=== PATIENT | male | born 1955 | race Hispanic/Latino ===

== ENCOUNTER → 2025-07-08 | Outpatient (REF) | payer MEDICARE ==
[~2025-07-08] MED LIST: REGADENOSON 0.4 MG/5 ML SYR IV ONE
== END ==
LOC: NM 13:01
PROVIDERS: ATTEND Internal Medicine Cardiovascular Disease
DX: I25.718 Atherosclerosis of autologous vein coronary artery bypass graft(s) with other forms of angina pectoris (principal); R94.39 Abnormal result of other cardiovascular function study
CPT/HCPCS: 78452; 93017; A9502; J2785